=== PATIENT | male | born 1980 | race Caucasian/White ===

== ENCOUNTER → 2024-09-20 08:51 | Outpatient (CLI) | payer OTHER, SELFPAY ==
--- NOTE | 2024-09-20 | DI.MRI.S_ITS ---
PROCEDURE: MR LUMBAR SPINE WO CON INDICATIONS: LOW BACK PAIN TECHNIQUE: Noncontrast sagittal T1 spin echo and T2 fast echo, sagittal STIR, and T2 fast spin echo through the lumbar spine. In cases with scoliosis, additional coronal T2 fast spin echo may be performed. COMPARISON: None. FINDINGS: Image quality: Excellent. Alignment and Curvature: There is normal bony alignment. Bone Marrow: Marrow is of normal overall signal. No acute vertebral body compression fractures. Spinal Cord: Conus medullaris terminates at the L1-L2 level. Visualized cord demonstrates normal signal and size. Paraspinous Soft Tissues: No paravertebral masses. T12-L1: Disc desiccation and mild height loss. Facet arthropathy. No central canal or neural foraminal stenosis. L1-L2: Disc desiccation. Facet arthropathy. No central canal or neural foraminal stenosis. L2-L3: Disc desiccation. Facet arthropathy and thickening of ligamentum flavum. Mild central canal stenosis. Mild bilateral neural foraminal stenosis. L3-L4: Disc desiccation and mild disc bulge. Facet arthropathy. No significant central canal stenosis. [id number] bilateral neural foraminal stenosis. L4-L5: Disc desiccation and mild disc bulge. Facet arthropathy. No significant central canal stenosis. [id number] bilateral neural foraminal stenosis. L5-S1: Disc desiccation. Facet arthropathy. Moderate bilateral neural foraminal stenosis. IMPRESSION: 1. Multilevel degenerative changes of the lumbar spine as described above. 2. Mild central canal stenosis at L2-L3. 3. Moderate bilateral neural foraminal stenosis at L5-S1. Dictated by: Omar Bui M.D. on 09/20/2024 at 14:03 Approved by: Omar Bui M.D. on 09/20/2024 at 14:05
== END ==
PROVIDERS: Referring Provider Preventive Medicine Aerospace Medicine; Visit Provider Preventive Medicine Aerospace Medicine
DX: M47.816 Spondylosis without myelopathy or radiculopathy, lumbar region (principal); M48.061 Spinal stenosis, lumbar region without neurogenic claudication; M48.07 Spinal stenosis, lumbosacral region; M54.50 Low back pain, unspecified
CPT/HCPCS: 72148

== ENCOUNTER → 2025-07-03 10:02 | Outpatient (CLI) | payer OTHER, SELFPAY | PROVIDERS: Visit Provider Chiropractor | DX: J02.9 Acute pharyngitis, unspecified (principal) | CPT/HCPCS: 87070 ==